=== PATIENT | male | born 1995 | race Caucasian/White ===

== ENCOUNTER 2021-04-18 19:17 | Emergency (ER) | payer SELFPAY ==
[~2021-04-18] VITALS: Ht 183 cm; Wt 93.0 kg
[2021-04-18 19:27] VITALS: BP 140/72
--- NOTE | 2021-04-18 19:36 | ED General ---
General Stated Complaint: ELEV BS/DIZZINESS Source of Information: Patient Exam Limitations: No Limitations History of Present Illness Date Seen by Provider: Apr 18, 2021 Time Seen by Provider: 19:34 Initial Comments To ER with reports of high blood sugar. He was feeling dizzy so he checked his blood sugar at home and found it to be 600. He is not known to be a diabetic. He states there are several family members of his that have diabetes. He takes no medications for anything. He just moved here from [place]. Timing/Duration: 1-2 Days Severity: Moderate Associated Systoms: Denies Symptoms Allergies and Home Medications Patient Home Medication List Home Medication List Reviewed: Yes Review of Systems Review of Systems Constitutional: see HPI EENTM: see HPI Respiratory: no symptoms reported Cardiovascular: no symptoms reported Genitourinary: no symptoms reported Musculoskeletal: no symptoms reported Skin: no symptoms reported Psychiatric/Neurological: No Symptoms Reported Hematologic/Lymphatic: No Symptoms Reported Immunological/Allergic: no symptoms reported Physical Exam Vital Signs Capillary Refill : Height, Weight, BMI Height: '" Weight: lbs. oz. kg; BMI Method: General Appearance: No Apparent Distress, WD/WN Eyes: Bilateral Eye Normal Inspection, Bilateral Eye PERRL Neck: Full Range of Motion, Normal Inspection Respiratory: No Accessory Muscle Use, No Respiratory Distress Cardiovascular: Regular Rate, Rhythm, Normal Peripheral Pulses Gastrointestinal: Normal Bowel Sounds, Non Tender, Soft Extremity: Normal Capillary Refill, Normal Inspection Neurologic/Psychiatric: Alert, Oriented x3 Skin: Normal Color, Warm/Dry Progress/Results/Core Measures Suspected Sepsis SIRS Temperature: Pulse: Respiratory Rate: Blood Pressure / Mean: Results/Orders Lab Results Laboratory Tests Test 04/18/21 19:35 Range/Units Glucometer 140 H 70-110 MG/DL My Orders Orders - AGUSTÍN MARTINEZ APRN Cbc With Automated Diff (04/18/21 19:23) Comprehensive Metabolic Panel (04/18/21 19:23) Ua Culture If Indicated (04/18/21 19:23) Ed Iv/Invasive Line Start (04/18/21 19:23) Beta Hydroxybutyrate (04/18/21 19:23) Accucheck Stat ONCE (04/18/21 19:25) Vital Signs/I&O Capillary Refill : Departure Communication (Admissions) 1943-His blood sugar for us was 140. Discussed with him that it would not have dropped from 600-1 40 and 30 minutes without insulin. He states that he was eating dessert and it is possible he had some sugar on his fingers when he checked it. Offered to do additional lab work but discussed with him that if he is otherwise healthy and takes no medications and feels okay (and he states that he does feel okay) then there would be no value for that. He agrees to go on home and follow-up with primary care. Impression Primary Impression: Normal blood sugar Disposition: HOME, SELF-CARE Condition: Stable Departure-Patient Inst. Decision time for Depature: 19:44 Referrals: NO,LOCAL PHYSICIAN (PCP/Family) Primary Care Physician Patient Instructions: NO INSTRUCTIONS GIVEN Work/School Note: Local Medical Staff Listing AGUSTÍN MARTINEZ APRN Apr 18, 2021 19:36
== END 2021-04-18 19:51 | disposition home or self-care (01) ==
LOC: ER 19:20
DX: R73.09 Other abnormal glucose (principal)
CPT/HCPCS: 82947